=== PATIENT | female | born 1980 | race Caucasian/White ===

== ENCOUNTER 2021-10-17 17:39 | Emergency (ER) | payer BC ==
[2021-10-17 19:02] LABS: #Eosinphils 0.5 thou/uL (0.0-0.7); #Lymphocytes 2.9 thou/uL (1.20-3.40); #Monocytes 0.8 thou/uL (0.11-0.59); #Neutrophils 7.8 thou/uL (1.40-6.50); %Basophils 0.3 % (0.0-1.0); %Eosinophils 3.8 % (0.0-10.0); %Lymphocytes 24.1 % (21.0-51.0); %Monocytes 6.3 % (0.0-10.0); %Neutrophils 65.4 % (42.0-75.0); Hemoglobin 14.1 g/dL (12.0-16.0); Mean Corpuscular HGB CONC 33.6 g/dL (32.0-36.0); Mean Corpuscular Hemoglobin 30.9 pg (27.0-31.0); Mean Corpuscular Volume 92.1 fL (78.0-98.0); Mean Platelet Volume 7.9 fL (7.4-10.4); Platelet Count 245 thou/uL (130-400); RBC Distribution Width 11.6 % (11.5-14.5); Red Blood Cell (RBC) Count 4.56 mill/uL (4.20-5.40); White Blood Cell (WBC) Count 11.9 thou/uL (4.8-10.8)
[2021-10-17] MEDS ORDERED: Metoclopramide HCl 10 MG/2 ML VIAL ONE (19:13)
[2021-10-17] MEDS ORDERED: diphenhydrAMINE 50 MG/ML VIAL ONE (19:13)
[2021-10-17] MEDS ORDERED: methylPREDNISolone Sod Succ/PF 125 MG/2 ML VIAL ONE (19:13)
[2021-10-17] MEDS ORDERED: Ketorolac Tromethamine 30 MG/ML VIAL ONE (19:13)
[2021-10-17 19:16] LABS: ALT (SGPT) 31 U/L (8-55); AST (SGOT) 17 U/L (5-34); Albumin 4.3 g/dL (3.5-5.0); Alkaline Phosphatase 45 U/L (40-110); Anion Gap 14 mmol/L (10-20); BUN (Urea Nitrogen) 10 mg/dL (7.0-18.7); Bilirubin, Total Less than 0.2 mg/dL (0.2-1.2); Calc. Creatinine Clearance 0 mL/min (70-130); Calcium 9.4 mg/dL (7.8-10.44); Carbon Dioxide 27 mmol/L (22-29); Chloride 104 mmol/L (98-107); Globulin 2.7 g/dL (2.4-3.5); Glucose 87 mg/dL (70-105); Potassium 3.8 mmol/L (3.5-5.1); Sodium 141 mmol/L (136-145)
[2021-10-17 19:36] LABS: INR-International Normal Ratio 0.9; Prothrombin Time 12.4 sec (12.0-14.7)
[2021-10-17 19:45] LABS: BHCG - Serum Negative (NEGATIVE); Pregs Control Background? CLEAR/WHITE (CLR/WHITE); Pregs Control Bar Appear? YES (CONTROL BAR)
== END 2021-10-17 23:00 | disposition short-term general hospital (02) ==
LOC: BURERS 17:39
DX: G35 Multiple sclerosis (principal)
CPT/HCPCS: 36415; 70450; 80053; 84703; 85025; 85610; J1200; J1885; J2765; J2930